=== PATIENT | male | born 1985 | race Caucasian/White ===

== ENCOUNTER 2018-07-13 06:17 | Emergency (ER) | payer OTHER ==
[2018-07-13 06:42] LABS: Hematocrit 43.8 % (39.6-49.0); RBC Red Blood Cell Count 4.87 M/uL (4.33-5.43)
[2018-07-13 06:43] LABS: Absolute Monocytes 0.6 K/uL (0.1-1.3); Absolute Neutrophil 4.1 K/uL (1.8-8.0); Basophils % 0.6 % (0-1.3); Eosinophils % 3.2 % (0-4.4); Lymphocytes % 28.7 % (15.3-44.8); MPV 9.1 fL (7.6-11.3)
[2018-07-13 06:54] LABS: Protime INR 0.88
[2018-07-13] MEDS ORDERED: LIDOCAINE 1% MPF 5 ML VIAL ONE (06:57)
[2018-07-13] MEDS ORDERED: TETANUS & DIPHTHERIA TOX,ADULT 0.5 ML VIAL ONE (06:58)
[2018-07-13] MEDS ORDERED: NA CHLORIDE 0.9% 1,000 ML ONE ×2 (06:58→07:53)
[2018-07-13 07:23] LABS: ALT/SGPT 30 U/L (12-78); AST/SGOT 14 U/L (15-37); Albumin 4.2 g/dL (3.4-5.0); Alkaline Phosphatase 92 U/L (45-117); BUN Blood Urea Nitrogen 14 mg/dL (7-18); Bicarbonate 25 mmol/L (21-32); Bilirubin Direct < 0.1 mg/dL (0-0.2); Bilirubin Total 0.3 mg/dL (0.2-1.0); CKMB Creatine Kinase MB 1.8 ng/mL (0.3-3.6); Creatine Phosphokinase 131 U/L (39-308); Glucose Level 115 mg/dL (74-106); Lipase 80 U/L (73-393); Magnesium 2.1 mg/dL (1.8-2.4); Potassium 3.9 mmol/L (3.5-5.1); Protein, Total 7.5 g/dL (6.4-8.2); Sodium Level 146 mmol/L (136-145); Troponin (Emerg Dept Use Only) < 0.02 ng/mL (0.0-0.045)
--- NOTE | 2018-07-13 08:02 | ER ---
Nurse's Notes [facility] Name: Kuldeep Barros Age: 32 yrs Sex: Male : 1985 Arrival Date: 07/13/2018 Time: 06:19 Bed 6 Private MD: Diagnosis: Laceration without foreign body of lip;Syncope and collapse;Dehydration;Fracture of nasal bones Presentation: 07/13 06:07 Presenting complaint: EMS states: that pt got up to go to bathroom and then only fc remembers waking up on the floor with lacerations to his nose and lower lip. Transition of care: patient was not received from another setting of care. Onset of symptoms was July 13, 2018 at 05:30. Risk Assessment: Do you want to hurt yourself or someone else? Patient reports no desire to harm self or others. Initial Sepsis Screen: Does the patient meet any 2 criteria? HR > 90 bpm. Yes Does the patient have a suspected source of infection? No. Patient's initial sepsis screen is negative. Care prior to arrival: Bleeding of injury controlled. 06:07 Method Of Arrival: EMS: [facility] 06:07 Acuity: ESTIVEN 2 06:07 Mechanism of Injury: Fall from standing position. Trauma event details: Injury occurred in the [facility], Injury occurred: in a public building. Injury occurred: July 13, 2018 Injury occurred at: 05:45. Trauma Activation: Alert Physician: ED Physician; Name: Joie RAMIREZ; Notified At: 06:07; Arrived At: 06:07 Physician: General Surgeon; Name: ; Notified At: 06:07; Arrived At: Physician: Radiology; Name: Ella Odell; Notified At: 06:07; Arrived At: 06:07 Physician: Respiratory; Name: ; Notified At: 06:07; Arrived At: Physician: Lab; Name: ; Notified At: 06:07; Arrived At: Historical: - Allergies: 06:23 No Known Allergies; fc - Home Meds: 06:23 None [Active]; fc - PMHx: 06:23 None; fc - PSHx: 06:23 None; fc - Immunization history:: Last tetanus immunization: unknown, Flu vaccine is not up to date. - Social history:: Smoking status: Patient uses tobacco products, smokes one pack cigarettes per day. Patient uses alcohol, occasionally. - Immunization history: Last tetanus immunization: unknown. - Ebola Screening: : Patient negative for fever greater than or equal to 101.5 degrees Fahrenheit, and additional compatible Ebola Virus Disease symptoms Patient denies exposure to infectious person Patient denies travel to an Ebola-affected area in the 21 days before illness onset. Screenin:23 Abuse screen: Denies threats or abuse. Nutritional screening: No deficits noted. fc Tuberculosis screening: No symptoms or risk factors identified. Fall Risk None identified. Primary Survey: 06:10 NO uncontrolled hemorrhage observed. A: The patient is alert. Airway: patent, No cc3 supplemental oxygen in use on arrival. Oral cavity: blood present, lower lip laceration. Breathing/Chest: Respiratory pattern: regular, Respiratory effort: spontaneous, unlabored, Chest inspection: symmetrical rise and fall of the chest. Circulation: Heart tones present. Disability Alert. Exposure/Environment: All clothing and personal items were removed. Forensic evidence collection is not deemed to be indicated at this time. Items placed in patient belonging bag. There is no evidence of uncontrolled external bleeding. Obvious injury(ies) are noted at this time: lower lip and nasal bridge lacerated wound A warming method has been applied: A warm blanket has been provided to the patient. 07:10 Reassessment Airway Airway Patent Breathing/Chest Respiratory pattern Regular la1 Respiratory effort Spontaneous Unlabored Circulation Color [place] Disability Alert. 08:10 NO uncontrolled hemorrhage observed. A: The patient is alert. Airway: patent. la1 Breathing/Chest: Respiratory pattern: regular, Respiratory effort: spontaneous, unlabored. Circulation: Heart tones present. Disability Alert. Secondary Survey: 07:30 HEENT: Face Other laceration to lower lip, slight nasal deviation. la1 Assessment: 06:15 General: Appears uncomfortable, Behavior is cooperative, appropriate for age. Pain: ea Complains of pain in nose and mouth. Neuro: Level of Consciousness is awake, alert, obeys commands, Oriented to person, place, time, situation. EENT: laceration to bridge of nose and laceration to lower lip. Cardiovascular: Patient's skin is warm and dry. Respiratory: Airway is patent Respiratory effort is even, unlabored, Respiratory pattern is regular, symmetrical. Derm: Skin is dry, Skin is pale, Skin temperature is warm. Injury Description: Laceration sustained to bridge of nose and lower lip. 07:15 Reassessment: Patient appears in no apparent distress at this time. No changes from sv previously documented assessment. Patient and/or family updated on plan of care and expected duration. Pain level reassessed. Patient is alert, oriented x 3, equal unlabored respirations, skin warm/dry/pink. Vital Signs: 06:07 BP 141 / 87; Pulse 109; Resp 18; Temp 98.8(O); Pulse Ox 100% on R/A; Weight 86.18 kg fc (R); Height 5 ft. 7 in. (170.18 cm) (R); Pain 7/10; 06:25 BP 116 / 80 Supine; Pulse 105; Resp 20 S; Pulse Ox 97% on R/A; cc3 06:26 BP 129 / 86 Sitting; Pulse 113; Resp 20 S; Pulse Ox 96% on R/A; cc3 06:28 BP 127 / 83 Standing; Pulse 118; Resp 19 S; Pulse Ox 97% on R/A; cc3 07:17 BP 120 / 73; Pulse 101; Resp 18; Pulse Ox 98% ; sv 08:11 BP 136 / 87; Pulse 88; Resp 16; Temp 97.3; Pulse Ox 98% on R/A; la1 06:07 Body Mass Index 29.76 (86.18 kg, 170.18 cm) fc [place] Coma Score: 06:07 Eye Response: spontaneous(4). Verbal Response: oriented(5). Motor Response: obeys commands(6). Total: 15. Trauma Score (Adult): 06:07 Eye Response: spontaneous(1); Verbal Response: oriented(1); Motor Response: obeys fc commands(2); Systolic BP: > 89 mm Hg(4); Respiratory Rate: 10 to 29 per min(4); Citlali Score: 15; Trauma Score: 12 ED Course: 06:07 Arm band placed on Patient placed in an exam room, on a stretcher. fc 06:07 Patient maintains SpO2 saturation greater than 95% on room air. fc 06:19 Patient arrived in ED. es 06:19 Nadira Colmenares FNP-C is [facility]. kb 06:19 Sixto Dsouza MD is Attending Physician. kb 06:20 Thermoregulation: warm blanket given to patient. cc3 06:22 Triage completed. fc 06:23 Patient has correct armband on for positive identification. Bed in low position. Call fc light in reach. Side rails up X2. 06:28 Radiology exam delayed due to Labs being drawn at this time. kw1 06:32 Inserted saline lock: 20 gauge in right antecubital area, using aseptic technique. ea Blood collected. 06:52 CT Head Brain wo Cont In Process Unspecified. EDMS 06:52 Facial Bones W/O Con CT In Process Unspecified. EDMS 07:16 Isamar Mejía, RN is Primary Nurse. sv 07:40 EKG done, by ED staff, reviewed by Nadira SEGURA. dh3 08:14 No provider procedures requiring assistance completed. IV discontinued, intact, la1 bleeding controlled, No redness/swelling at site. Pressure dressing applied. Administered Medications: 06:57 Drug: NS 0.9% 1000 ml Route: IV; Rate: 1000 ml; Site: right antecubital; ea 08:14 Follow up: IV Status: Completed infusion la1 06:57 Drug: Tetanus-Diphtheria Toxoid Adult 0.5 ml {Chemist Instrumentation: [employer]. Exp: ea 04/09/2020. Lot #: [id number]. } Route: IM; Site: right deltoid; 07:19 Follow up: Response: No adverse reaction sv 07:42 Drug: NS 0.9% 1000 ml Route: IV; Rate: 1000 ml; Site: right forearm; la1 08:14 Follow up: IV Status: Completed infusion la1 07:43 Drug: Lidocaine (1 %) 1 vials {Note: to bedside for provider use.} Volume: 20 ml; la1 Route: Infiltration; 08:14 Follow up: Response: No adverse reaction la1 Intake: 08:15 PO: 0ml; Total: 0ml. sv Output: 08:15 Urine: 0ml; Total: 0ml. sv Outcome: 08:01 Discharge ordered by . kb 08:15 Discharged to home ambulatory. la1 08:15 Condition: stable 08:15 Discharge instructions given to patient, Instructed on discharge instructions, follow up and referral plans. medication usage, Demonstrated understanding of instructions, follow-up care, medications, Prescriptions given X 2. 08:15 Patient left the ED. la1 08:15 Patient's length of stay in the Emergency Department was greater than 2 hours. due to sv laceration repairPatient's length of stay extended due to Signatures: Dispatcher [employer] EDNadira Moreira, BELT BACK OPERATOR-Ho BELT BACK OPERATOR-Isamar Ivan RN RN sv Salyer, Edna es Chretien, Felicia, RN RN fc Attema, Lee, RN RN [facility] Sharon [facility] Kim Magdaleno RN RN ea Wilhelm, Kimberly [facility] Suzy Mueller 3
--- NOTE | 2018-07-13 08:02 | EDPHYS ---
Physician Documentation [facility] Name: Kuldeep Barros Age: 32 yrs Sex: Male : 1985 Arrival Date: 07/13/2018 Time: 06:19 Bed 6 Private MD: ED Physician Sixto Dsouza HPI: 07/13 07:00 This 32 yrs old Male presents to ER via EMS with complaints of Fall Injury. kb 07:00 The patient has experienced syncope, collapsed, lost consciousness. Onset: The kb symptoms/episode began/occurred this morning. Duration: This was a single episode, that lasted an unknown period of time. Context: the episode(s) was witnessed, by no one, occurred hotel, occurred while the patient was standing, Just prior to the episode the patient experienced no apparent symptoms. Associated injury: Head/face: bridge of nose and lower lip, abrasion, laceration, 2 cm(s). Associated signs and symptoms: The patient has no apparent associated signs or symptoms. Current symptoms: Currently, the patient is not experiencing any symptoms, no decreased level of consciousness, no confusion, no dysphasia, no headache, no paralysis, no visual changes. The patient has not experienced similar symptoms in the past. The patient has not recently seen a physician. Pt reports he got up to urinate, walked to the bathroom, urinated and then woke up on the floor. States he does not know how long he was out. Did not have any symptoms prior to episode. Denies dizziness, headache, visual changes. States he came because of the laceration on his lip. Historical: - Allergies: 06:23 No Known Allergies; fc - Home Meds: 06:23 None [Active]; fc - PMHx: 06:23 None; fc - PSHx: 06:23 None; fc - Immunization history:: Last tetanus immunization: unknown, Flu vaccine is not up to date. - Social history:: Smoking status: Patient uses tobacco products, smokes one pack cigarettes per day. Patient uses alcohol, occasionally. - Immunization history: Last tetanus immunization: unknown. - Ebola Screening: : Patient negative for fever greater than or equal to 101.5 degrees Fahrenheit, and additional compatible Ebola Virus Disease symptoms Patient denies exposure to infectious person Patient denies travel to an Ebola-affected area in the 21 days before illness onset. ROS: 06:58 Constitutional: Negative for fever, chills, and weight loss, ENT: Negative for injury, kb pain, and discharge, Neck: Negative for injury, pain, and swelling, Cardiovascular: Negative for chest pain, palpitations, and edema, Respiratory: Negative for shortness of breath, cough, wheezing, and pleuritic chest pain, Abdomen/GI: Negative for abdominal pain, nausea, vomiting, diarrhea, and constipation, Back: Negative for injury and pain, : Negative for injury, bleeding, discharge, and swelling, MS/Extremity: Negative for injury and deformity. 06:58 Skin: Positive for abrasion(s), laceration(s), of the bridge of nose and lower lip. 06:58 Neuro: Positive for loss of consciousness, syncope, Negative for altered mental status, dizziness, gait disturbance, headache, hearing loss, numbness, seizure activity, speech changes, near syncope, tingling, tinnitus, tremor, visual changes, weakness. Exam: 06:59 Constitutional: This is a well developed, well nourished patient who is awake, alert, kb and in no acute distress. Eyes: Pupils equal round and reactive to light, extra-ocular motions intact. Lids and lashes normal. Conjunctiva and sclera are non-icteric and not injected. Cornea within normal limits. Periorbital areas with no swelling, redness, or edema. ENT: Nares patent. No nasal discharge, no septal abnormalities noted. Tympanic membranes are normal and external auditory canals are clear. Oropharynx with no redness, swelling, or masses, exudates, or evidence of obstruction, uvula midline. Mucous membranes moist. Neck: Trachea midline, no thyromegaly or masses palpated, and no cervical lymphadenopathy. Supple, full range of motion without nuchal rigidity, or vertebral point tenderness. No Meningismus. Chest/axilla: Normal chest wall appearance and motion. Nontender with no deformity. No lesions are appreciated. Cardiovascular: Regular rate and rhythm with a normal S1 and S2. No gallops, murmurs, or rubs. Normal PMI, no JVD. No pulse deficits. Respiratory: Lungs have equal breath sounds bilaterally, clear to auscultation and percussion. No rales, rhonchi or wheezes noted. No increased work of breathing, no retractions or nasal flaring. Abdomen/GI: Soft, non-tender, with normal bowel sounds. No distension or tympany. No guarding or rebound. No evidence of tenderness throughout. MS/ Extremity: Pulses equal, no cyanosis. Neurovascular intact. Full, normal range of motion. Neuro: Awake and alert, GCS 15, oriented to person, place, time, and situation. Cranial nerves II-XII grossly intact. Motor strength 5/5 in all extremities. Sensory grossly intact. Cerebellar exam normal. Normal gait. 06:59 Head/face: Noted is no obvious of injury or deformity except abrasion(s), that are mild, of the nose, a laceration(s), that is jagged, 2 cm(s), of the lower lip. 09:01 ECG was reviewed by the Attending Physician. kb Vital Signs: 06:07 BP 141 / 87; Pulse 109; Resp 18; Temp 98.8(O); Pulse Ox 100% on R/A; Weight 86.18 kg fc (R); Height 5 ft. 7 in. (170.18 cm) (R); Pain 7/10; 06:25 BP 116 / 80 Supine; Pulse 105; Resp 20 S; Pulse Ox 97% on R/A; cc3 06:26 BP 129 / 86 Sitting; Pulse 113; Resp 20 S; Pulse Ox 96% on R/A; cc3 06:28 BP 127 / 83 Standing; Pulse 118; Resp 19 S; Pulse Ox 97% on R/A; cc3 07:17 BP 120 / 73; Pulse 101; Resp 18; Pulse Ox 98% ; sv 08:11 BP 136 / 87; Pulse 88; Resp 16; Temp 97.3; Pulse Ox 98% on R/A; la1 06:07 Body Mass Index 29.76 (86.18 kg, 170.18 cm) [place] Coma Score: 06:07 Eye Response: spontaneous(4). Verbal Response: oriented(5). Motor Response: obeys commands(6). Total: 15. Trauma Score (Adult): 06:07 Eye Response: spontaneous(1); Verbal Response: oriented(1); Motor Response: obeys commands(2); Systolic BP: > 89 mm Hg(4); Respiratory Rate: 10 to 29 per min(4); Citlali Score: 15; Trauma Score: 12 Laceration: 07:59 Wound Repair of 2cm ( 0.8in ) subcutaneous laceration to lower lip. Irregularly kb shaped.. Distal neuro/vascular/tendon intact. Anesthesia: Wound infiltrated with 2 mls of 1% lidocaine. Wound prep: Extensive cleansing, Wound irrigation. Skin closed with 7 5-0 Vicryl using interrupted sutures and sterile technique. Patient tolerated well. MDM: 06:20 Patient medically screened. kb 06:55 Data reviewed: vital signs, nurses notes. Data interpreted: Pulse oximetry: on room air kb is 97 %. Interpretation: normal. 07:25 ED course: no nasal septum hematoma noted. kb 08:00 Counseling: I had a detailed discussion with the patient and/or guardian regarding: the kb historical points, exam findings, and any diagnostic results supporting the discharge/admit diagnosis, lab results, radiology results, the need for outpatient follow up, an ENT specialist, a family practitioner, to return to the emergency department if symptoms worsen or persist or if there are any questions or concerns that arise at home. 07/13 06:21 Order name: Basic Metabolic Panel; Complete Time: 07:23 kb 07/13 06:21 Order name: CBC with Diff; Complete Time: 06:51 kb 07/13 06:21 Order name: Ckmb; Complete Time: 07:23 kb 07/13 06:21 Order name: CPK; Complete Time: 07:23 kb 07/13 06:21 Order name: Hepatic Function; Complete Time: 07:23 kb 07/13 06:21 Order name: Lipase; Complete Time: 07:23 kb 07/13 06:21 Order name: Magnesium; Complete Time: 07:23 kb 07/13 06:21 Order name: Protime (+inr); Complete Time: 06:55 kb 07/13 06:21 Order name: Ptt, Activated; Complete Time: 06:55 kb 07/13 06:21 Order name: Troponin (emerg Dept Use Only); Complete Time: 07:23 kb 07/13 06:21 Order name: CT Head Brain wo Cont kb 07/13 06:21 Order name: Facial Bones W/O Con CT kb 07/13 06:21 Order name: Cardiac monitoring; Complete Time: 06:27 kb 07/13 06:21 Order name: EKG - Nurse/Tech; Complete Time: 07:57 kb 07/13 06:21 Order name: IV Saline Lock; Complete Time: 06:37 kb 04 06:21 Order name: Labs collected and sent; Complete Time: 06:37 kb 04 06:21 Order name: NPO; Complete Time: 06:27 kb 04 06:21 Order name: O2 Per Protocol; Complete Time: 06:27 kb 04 06:21 Order name: O2 Sat Monitoring; Complete Time: 06:27 kb 04 06:21 Order name: Orthostatics; Complete Time: 06:36 kb 07/13 06:41 Order name: Vicryl, Sutures; Complete Time: 07:18 kb 07/13 06:41 Order name: Gloves, Sterile; Complete Time: 07:18 kb 04 06:41 Order name: Setup Suture Tray; Complete Time: 07:18 kb EC:01 Rate is 88 beats/min. Rhythm is regular. QRS Ola is Normal. [place] interval is normal at kb 162 msec. QRS interval is normal at 90 msec. QT interval is normal at 346 msec. Clinical impression: Normal ECG. Interpreted by me. Reviewed by me. Administered Medications: 06:57 Drug: NS 0.9% 1000 ml Route: IV; Rate: 1000 ml; Site: right antecubital; ea 08:14 Follow up: IV Status: Completed infusion la1 06:57 Drug: Tetanus-Diphtheria Toxoid Adult 0.5 ml {Cyber Security Architect: [employer]. Exp: ea 04/09/2020. Lot #: [id number]. } Route: IM; Site: right deltoid; 07:19 Follow up: Response: No adverse reaction sv 07:42 Drug: NS 0.9% 1000 ml Route: IV; Rate: 1000 ml; Site: right forearm; la1 08:14 Follow up: IV Status: Completed infusion la1 07:43 Drug: Lidocaine (1 %) 1 vials {Note: to bedside for provider use.} Volume: 20 ml; la1 Route: Infiltration; 08:14 Follow up: Response: No adverse reaction la1 Disposition: 07/13/18 08:01 Discharged to Home. Impression: Laceration without foreign body of lip, Syncope and collapse, Dehydration, Fracture of nasal bones. - Condition is Stable. - Discharge Instructions: Mouth Laceration, [id number], Syncope, [id number]-[id number], Nasal Fracture, Xccd-[id number]-[id number], Dehydration, Adult, [id number]. - Prescriptions for Augmentin 875- 125 mg Oral Tablet - take 1 tablet by ORAL route every 12 hours for 10 days; 20 tablet. Tylenol- Codeine #3 300-30 mg Oral Tablet - take 1 tablet by ORAL route every 6 hours As needed; 15 tablet. - Medication Reconciliation Form, Thank You Letter, Antibiotic Education, Prescription Opioid Use form. - Follow up: Emergency Department; When: As needed; Reason: Worsening of condition. Follow up: Private Physician; When: 2 - 3 days; Reason: Recheck today's complaints, Continuance of care, Re-evaluation by your physician. Signatures: Dispatcher [employer] EDMS Nadira Colmenares, CYRIL-C DESK MAKER-Roseline Elena RN RN Justin Patino RN RN la1 Kim Magdaleno RN RN ea Verde, Stephanie RN sv Corrections: (The following items were deleted from the chart) 08:15 08:01 07/13/2018 08:01 Discharged to Home. Impression: Laceration without foreign body la1 of lip; Syncope and collapse; Dehydration; Fracture of nasal bones. Condition is Stable. Forms are Medication Reconciliation Form, Thank You Letter, Antibiotic Education, Prescription Opioid Use. Follow up: Emergency Department; When: As needed; Reason: Worsening of condition. Follow up: Private Physician; When: 2 - 3 days; Reason: Recheck today's complaints, Continuance of care, Re-evaluation by your physician. kb
--- NOTE | 2018-07-13 12:10 | RAD REPORT ---
EXAM DESCRIPTION: CT - Facial Bones W/ Mpr - 07/13/2018 7:10 am CLINICAL HISTORY: 32-year-old male status post syncopal episode and fall. TECHNIQUE: Axial CT of the facial bones was performed without intravenous contrast with sagittal and coronal reformatted images. The CT study is performed according to ALARA (as low as reasonably achie vable) or ALARA/IMAGE GENTLY, with automatic adjustment of mA and/or kV according to patient size. Performed on: 07/13/2018 at 6:41 AM COMPARISON: None. FINDINGS: The mandible is intact. The temporomandibular joints are preserved. Both globes are intact and are symmetric. The extraocular muscles and optic nerves are symmetric. T he intraconal fat is preserved. There is no evidence of intraorbital emphysema. There is a mucous retention cyst in the left maxillary sinus. There is mild mucosal thickening of the right maxillary sinus and trace mucosal thickening of the remaining paranasal sinuses. There are bilateral minimally displaced nasal bone fractures as well as a comminuted nasal septal fra cture. There is adjacent subcutaneous emphysema and soft tissue swelling. There is mild irregularity of the anterior maxillary spine suggesting a fracture as well. Mastoid air cells and middle ear cavities are clear as visualized. IMPRESSION: 1. Bilateral minimally displaced nasal bone fractures as well as a comminuted fracture o f the nasal septum. There is surrounding soft tissue swelling and subcutaneous emphysema. 2. Suspect possible avulsion fracture of the anterior maxillary spine. 3. Mild paranasal sinus disease as described above. Electronically signed by: Cecilia Carey DO 07/13/2018 7:04 AM CDT Due to temporary technical issues with the PACS/Fluency reporting system, reports are being signed by the in house radiologist as a courtesy to ensure prompt reporting. The interpreting radiologist is f gianaly responsible for the content of the report.
--- NOTE | 2018-07-13 12:11 | RAD REPORT ---
EXAM DESCRIPTION: CT - Head Brain Wo Cont - 07/13/2018 7:05 am CLINICAL HISTORY: Trauma; syncope TECHNIQUE: Multiple axial CT images of the brain were performed followed by sagittal and coronal rec onstructed images. The CT study is performed according to ALARA (as low as reasonably achievable) or ALARA/IMAGE GENTLY, with automatic adjustment of mA and/or kV according to patient size. Performed on: 07/13/2018 at 6:39 AM Comparisons: None. FINDINGS: There is no evidence of mass, acute mass effect or midline shift. There are no acute extra -axial fluid collections. There is no evidence of acute intracranial hemorrhage. The cerebral sulci and ventricles are normal in size and configuration. There are no focal abnormal areas of increased or decreased attenuation. There is no significant mucosal thickening of the paranasal sinuses. The mastoid air cells are clear. The orbital contents are grossly unremarkable. No acute osseous abnormalities are identified. No focal soft tissue abnormalities are identified. IMPRESSION: There is no evidence of acute intracranial pathology. Electronically signed by: Cecilia Carey DO 07/13/2018 6:56 AM CDT Due to temporary technical issues with the PACS/Fluency reporting system, reports are being signed by the in house radiologist as a courtesy to ensure prompt reporting. The interpreting radiologist is f ully responsible for the content of the report.
== END 2018-07-13 08:15 | disposition home or self-care (01) ==
LOC: ER 06:17
PROC: 0CQ1XZZ Repair Lower Lip, External Approach (ICD-10-PCS; principal; 2018-07-13)
DX: S01.511A Laceration without foreign body of lip, initial encounter (principal); S02.2XXA Fracture of nasal bones, initial encounter for closed fracture; E86.0 Dehydration; Z23 Encounter for immunization; F17.210 Nicotine dependence, cigarettes, uncomplicated
CPT/HCPCS: 36415; 70450; 70486; 76377; 80048; 80076; 82550; 82553; 83690; 83735; 84484; 85025; 85610; 85730; 90714; 96360; 99285; J7030